=== PATIENT | male | born 1990 | race Caucasian/White ===

== ENCOUNTER → 2019-11-21 | Outpatient (CLI) | payer BC ==
[2017-01-24 01:48] VITALS: BP 129/76
[2019-11-21 13:46] LABS: BASO % 0 % (0-3); EOS # 0.2 x10^3/uL (0.0-0.7); EOS % 2 % (0-3); HEMATOCRIT 40.6 % (39.0-53.0); HEMOGLOBIN 13.9 g/dL (13.0-17.5); LYMPH # 1.8 x10^3/uL (1.0-4.8); LYMPH % 14 % (24-48); MEAN CORPUSCULAR HEMOGLOBIN 31 pg (25-35); MEAN CORPUSCULAR HGB CONC 34 g/dL (31-37); MEAN CORPUSCULAR VOLUME 91 fL (79-100); MONO # 1.4 x10^3/uL (0.0-1.1); MONO % 10 % (0-9); NEUT # 10.2 x10^3uL (1.8-7.7); NEUT % 74 % (31-73); PLATELET COUNT 197 x10^3/uL (140-400); RED BLOOD COUNT 4.46 x10^6/uL (4.30-5.70); WHITE BLOOD COUNT 13.7 x10^3/uL (4.0-11.0)
[2019-11-21 15:14] LABS: SEDIMENTATION RATE 113 (0-15)
== END | disposition home or self-care (01) ==
LOC: LAB 12:17
PROVIDERS: ATTEND Podiatrist Foot & Ankle Surgery
DX: L03.116 Cellulitis of left lower limb (principal)
CPT/HCPCS: 36415; 85025; 85379; 85651; 86140

== ENCOUNTER → 2019-11-27 | Outpatient (CLI) | payer BC ==
[2017-01-24 01:48] VITALS: BP 129/76
--- NOTE | 2019-11-27 13:32 | RAD ---
VENOUS LOWER EXTREMITY LEFT 11/27/2019 11:00 AM Clinical Information: Cellulitis of the left lung. Comparison: None. Technique: Multiple grayscale, color Doppler, and spectral Doppler sonographic images of the lower extremity venous structures were obtained. Findings: The left common femoral, femoral, and popliteal veins exhibit normal compression, respiratory phasicity, and augmentation. No intraluminal thrombi are identified. Color Doppler flow is demonstrated in the left posterior tibial veins. Greater saphenous veins are patent at the saphenofemoral junction. Impression: 1. No evidence of deep venous thrombosis. Electronically signed by: Shilpa Rodriguez MD (11/27/2019 1:29 PM) [place] [id number]
== END | disposition home or self-care (01) ==
LOC: US 11:02
PROVIDERS: ATTEND Podiatrist Foot & Ankle Surgery
DX: I82.4Z2 Acute embolism and thrombosis of unspecified deep veins of left distal lower extremity (principal); L03.116 Cellulitis of left lower limb
CPT/HCPCS: 93971

== ENCOUNTER → 2019-12-11 | Outpatient (CLI) | payer BC ==
[2017-01-24 01:48] VITALS: BP 129/76
--- NOTE | 2019-12-11 16:32 | RAD ---
CHEST PA LATERAL History: Cough Comparison: None. Findings: 2 PA and 2 lateral views of the chest are submitted. There is no significant dependent pleural fluid, pneumothorax, or lobar infiltrate. Cardiac silhouette is within normal limits. Impression: 1. There is no convincing radiographic evidence of acute cardiopulmonary disease. Electronically signed by: Nino Thakur MD (12/11/2019 4:29 PM) [id number]
== END | disposition home or self-care (01) ==
LOC: DXRAD 15:32
PROVIDERS: ATTEND Internal Medicine
DX: R05 Cough (principal)
CPT/HCPCS: 71046

== ENCOUNTER → 2020-04-02 | Outpatient (CLI) | payer BC ==
[2017-01-24 01:48] VITALS: BP 129/76
--- NOTE | 2020-04-02 11:18 | RAD ---
FOOT LEFT 3V DATE: 04/02/2020 12:00 AM INDICATION: First digit pain after stubbing toe COMPARISON: None. FINDINGS: Bones: There is no evidence of acute fracture or dislocation. Joints: Mild degenerative changes of the first digit IP joint. Miscellaneous: None. IMPRESSION: No evidence of acute fracture. Electronically signed by: Nino Pérez MD (04/02/2020 11:15 AM) [id number]
== END ==
LOC: RAD 10:55
PROVIDERS: ATTEND Podiatrist Foot & Ankle Surgery
DX: M25.572 Pain in left ankle and joints of left foot (principal)
CPT/HCPCS: 73630